=== PATIENT | female | born 1930 | race Caucasian/White ===

== ENCOUNTER 2016-11-14 14:00 | Inpatient (IN) | payer MEDICARE, BC ==
[~2016-11-14] VITALS: Ht 170.2 cm; Wt 64.3 kg
--- NOTE | ~2016-11-14 | OR ---
PATIENT'S NAME: HAZEL GTZ [facility] AGE: 86 Y [address] ROOM: [address] [address] LOCATION: GPCU ADMIT DATE: 11/15/2016 OR/Procedure Report DISCHARGE DATE: FAMILY PHYSICIAN: Del Camejo MD ATTENDING PHYSICIAN: JEFF VELASCO SURGEON: Jeff Velasco MD [employer] ARCHITECT: DATE OF PROCEDURE: 11/15/2016 PREOPERATIVE DIAGNOSIS: High-grade right internal carotid artery stenosis. POSTOPERATIVE DIAGNOSIS: High-grade right internal carotid artery stenosis. PROCEDURES: Right carotid endarterectomy with bovine pericardial patch. PIANO MACHINE OPERATOR: Yana Saldaña, nurse practitioner, who provided retraction help as well as closure of the wound as well as Annmarie Justyn. ANESTHESIA: General. ESTIMATED FLUID LOSS: 200 mL. OPERATIVE FINDINGS: High-grade, nearly occlusive lesion in the right ICA, neurologically intact at the end of the case. DESCRIPTION OF PROCEDURE: The patient was brought to the operating room, placed supine on the operating table, prepped and draped in a sterile manner. Preoperative time-out was performed. The patient received preoperative antibiotics. We made a standard incision along the anterior border of the right sternocleidomastoid muscle, transected the platysma, dissected out the internal jugular, identified the facial vein, which was ligated and transected. We then dissected out the common, external, and internal carotid arteries. We gave 5000 units of heparin. We clamped proximally and distally on all major arteries. We performed back pressure, which showed that she did not have adequate pressure to avoid a shunt, so we placed a 5 x 3 Sundt shunt. Flow was confirmed using Doppler. We then removed the plaque in its entirety. We then did a standard bovine pericardial patch using two running 6-0 Campus sutures. We clamped to remove the shunt. We allowed backbleeding from all 3 vessels. We opened up at the external and common, we waited 10 heartbeats, opened the clamp on the internal. Flow was confirmed in all 3 vessels with Doppler. Protamine was used to reverse the heparin. Deep layers were closed with 2-0 and 3-0 Vicryl. The patient's INR was 2.0 on the starting of the case. The patient was on Coumadin. We proceeded due to the fact that the patient had a critical carotid. We placed a 10-flat MALI drain along the bed of the incision to drain any excess oozing of blood, when up the patient did PATIENT'S NAME: HAZEL GTZ [facility] AGE: 86 Y [address] ROOM: [place] [address] LOCATION: GPCU ADMIT DATE: 11/15/2016 OR/Procedure Report DISCHARGE DATE: FAMILY PHYSICIAN: Del Camejo MD ATTENDING PHYSICIAN: JEFF VELASCO appear significantly enjoying when we were done. Skin was closed with running 4-0 Monocryl. The patient tolerated the procedure well and transferred to the recovery room and then up to the floor. JEFF VELASCO MD FKM/modl /[id number] d: 11/15/16 1832 t: 11/20/16 1150, OPERATIVE SUMMARY
--- NOTE | ~2016-11-14 | PUL ---
PATIENT'S NAME: HAZEL GTZ [facility] AGE: 86 Y [address] ROOM: [place] [address] LOCATION: GPCU ADMIT DATE: 11/15/2016 Pulmonary DISCHARGE DATE: 11/17/2016 FAMILY PHYSICIAN: Del Camejo MD ATTENDING PHYSICIAN: Jeff Velasco NAME OF PROCEDURE: Overnight Pulse Oximetry DATE OF PROCEDURE: November 17, 2015 REASON FOR EXAM: Nocturnal hypoxemia RESULTS: Overnight oximetry on room air. The total recording time was 9 hours, 26 minutes, and 28 seconds with a total valid sampling time of 9 hours, 6 minutes, and 20 seconds. The highest pulse was 123, lowest pulse 80, with a mean pulse of 99. Highest SpO2 was 95%, lowest SpO2 was 72%, with a mean SpO2 of 88.3%. The three longest continuous times with saturation less than 88% was 13 minutes and 52 seconds, 11 minutes, and 10 minutes and 24 seconds. The desaturation event index was elevated at 39.4. PHYSICIAN INTERPRETATION: The patient has evidence of significant nocturnal hypoxia and will qualify for oxygen supplementation as per Medicare criteria. We will recommend a sleep study at this point. MD AYAKA PAIGE/isacc /[id number] dtt: 11/21/16 1429 , dtd:
--- NOTE | ~2016-11-14 | CON ---
PATIENT'S NAME: HAZEL GTZ [facility] AGE: 86 Y [address] 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 The patient at this time has no complaints. Her voice is sore, but other than that her pain is controlled. She has no shortness of breath. She has no fever or chills. She has no chest pain. She has no abdominal pain, no nausea, no diarrhea, no abdominal or urinary changes. REVIEW OF SYSTEMS: Negative as per HPI. PAST MEDICAL HISTORY: AFib, basal cell carcinoma, peripheral vascular disease, carotid artery stenosis critical on the right side, osteoarthritis, osteoporosis, hypertension, fatty liver. FAMILY HISTORY: Her father had an OR at the age of 70. Her maternal grandmother has diabetes type 2. Her mother had cervical cancer. SOCIAL HISTORY: She is never a smoker. She rarely consumes alcohol. ALLERGIES: NO KNOWN ALLERGIES AT THIS TIME. MEDICATIONS: Include Norvasc 5 mg p.o. every day, furosemide 20 mg every day, Toprol 50 mg twice a day, potassium 10 mEq everyday, propafenone 150 mg times a day, and Coumadin 3 mg everyday PHYSICAL EXAMINATION: VITAL SIGNS: The patient is afebrile, pulse is in the 90s, respiratory rate [facility]GE[facility] 86 Y [address] ROOM: [place] [address] LOCATION: GPCU ADMIT DATE: 11/15/2016 Consultation DISCHARGE DATE: FAMILY PHYSICIAN: Del Camejo MD ATTENDING PHYSICIAN: CHARMAINE BENEDICT 14, blood pressure 140/90, and saturating 96% on about 3 L of oxygen. GENERAL: She is postop at this time. She is normal. She is alert, awake, and oriented. She is no acute distress. LUNGS: Diminished, but clear. No crackles. No wheezing. HEART: Heart sounds regular rate and rhythm. No rubs or no murmurs present. ABDOMEN: Soft and nontender. No guarding or rigidity. Noted. No pedal edema. SKIN: Intact. She has a drain from the carotid endarterectomy site and is draining very well. NEUROLOGIC: She is grossly intact. LABORATORY DATA: From today's labs, there does not appear to be any significant abnormalities. Her INR is 2.05. ASSESSMENT AND PLAN: 1. Right artery critical stenosis status post endarterectomy. Management per primary team. 2. Hypertension. We will continue Norvasc and Toprol. 3. For her atrial fibrillation, continue propafenone and Toprol. We will defer resuming Coumadin to primary team. MD GRUPO HERNADEZ/arsalan /[id number] d: 11/16/16 0042 t: 11/16/16 1331, CONSULTATION REPORT
--- NOTE | ~2016-11-14 | DS ---
PATIENT'S NAME: HAZEL GTZ [facility] AGE: 86 Y [address] ROOM: [place] [address] LOCATION: GPCU ADMIT DATE: 11/15/2016 Discharge Summary DISCHARGE DATE: 11/17/2016 FAMILY PHYSICIAN: Del Camejo MD ATTENDING PHYSICIAN: Jeff Velasco DISCHARGE DIAGNOSES: 1. Right internal carotid stenosis. 2. Severe chronic obstructive pulmonary disease. 3. Acute on chronic hypoxic respiratory failure. 4. Atrial fibrillation. 5. Essential hypertension. 6. Chronic kidney disease stage 3. PROCEDURES: 1. Right carotid endarterectomy by Dr. Velasco. 2. Trend oximetry by respiratory therapy. REASON FOR ADMISSION: See diagnosis list. HOSPITAL COURSE: Postoperatively, she did well. She had maybe a slightly slower recovery than somebody younger. We did a trend oximetry last night that showed that she was less than 90% about 65% of the time and less than 89 about half the time. She did not get below 70% and was below 80% only 1% of the time. LABORATORY: Her white count, hemoglobin, and platelets have been consistently normal. Her BUN was 22 with creatinine of 1.4, slightly up from admission at 1.2. Electrolytes otherwise normal. Her GFR was in the 34-41 range. Chest x- ray on 11/17 showed stable cardiomegaly. She had normally compensated pulmonary vasculature and hypoventilatory density in the left base. No evidence for pneumonia. DISCHARGE MEDICATIONS: She will be discharged on meds per nursing med recon. DISCHARGE DIET: Ad kishore. DISCHARGE ACTIVITY: Ad kishore. I pushed fairly sincerely and vigorously for home oxygen, but she really did not want it and I think ethically I could not have pushed any harder and done the right thing. Her daughter was sort of pushing for just having home O2 available if she needed and she still refused. PATIENT'S NAME: HAZEL GTZ [facility] AGE: 86 Y [address] ROOM: [place] [address] LOCATION: GPCU ADMIT DATE: 11/15/2016 Discharge Summary DISCHARGE DATE: 11/17/2016 FAMILY PHYSICIAN: eDl Camejo MD ATTENDING PHYSICIAN: Jeff Vleasco FOLLOWUP: Followup will be with Dr. Yana Saldaña in [address] Camejo in 3 days. Note that discharge time was less than 30 minutes. MD LEIA JAMISON/modl /[id number] d: 11/18/16 012 t: 11/20/16 09, DISCHARGE SUMMARY
[~2016-11-14 14:00] MED LIST: COUMADIN ** IA3 MG PO; LASIX20 MG PO; LOPRESSOR50 MG PO; NORVASC5 MG PO; POTASSIUM CHLO10 MEQ PO; RYTHMOL150 MG PO
[2016-11-15 08:26] LABS: BASOPHIL % 0.5 %; EOSINOPHIL # 0.2 K/uL (0.0-0.5); EOSINOPHIL % 4.5 %; HEMATOCRIT 39.1 % (30.0-46.0); HEMOGLOBIN 12.7 g/dL (10.0-15.0); IMMATURE GRANULOCYTE % 0.2 %; LYMPHOCYTE % 24.8 %; MCH 30.2 pg (27.0-34.0); MCHC 32.5 gm/dL (32.0-36.5); MCV 93.1 fl (83.0-98.0); MONOCYTE # 0.5 K/uL (0.0-1.0); MONOCYTE % 11.2 %; MPV 10.8 fl (9.4-12.4); NEUTROPHIL # (ANC) 2.4 K/uL (1.8-7.8); NEUTROPHIL % 58.8 %; NRBC % 0 /100WBC (0-0.00); PLATELET COUNT 153 K/uL (150-450); RDW-CV 17.4 % (11.9-14.6)
[2016-11-15 08:33] LABS: INR - (THERAPEUTIC) 2.05 (0.92-1.07); PROTIME 21.7 SECONDS (9.8-11.4); PTT 40 SECONDS (25-32)
--- NOTE | 2016-11-15 16:39 | NUR ---
Significant Event: VSS AND 4L/NC. AFEBRILE. RT)NECK CIRCUMFERENCE MEASURES 38 CMS, DRESSING C/D/I. MALI DRAIN WITH 10 MLS BLOODY DRAINAGE OUT. DROWSY THIS AFTERNOON, AWAKES EASILY TO VERBAL STIMULI. DENIES PAIN P 1 TAB NORCO GIVEN IN THE PACU. INC VOID X1, REPOSITIONED Q2H. NEUROS ALL INTACT. Follow up: CONTINUE PLAN OF CARE; ? HOME TMRW.
[2016-11-16 04:30] LABS: ANION GAP 10.6 (10.0-19.0); CREATININE 1.2 mg/dL (0.5-1.1); POTASSIUM 4.6 mMol/L (3.7-5.1)
[2016-11-16 04:44] LABS: BASOPHIL % 0.2 %; HEMATOCRIT 33.9 % (30.0-46.0); HEMOGLOBIN 10.9 g/dL (10.0-15.0); IMMATURE GRANULOCYTE % 0.4 %; LYMPHOCYTE # 0.7 K/uL (0.8-4.0); LYMPHOCYTE % 13.5 %; MCH 29.8 pg (27.0-34.0); MCHC 32.2 gm/dL (32.0-36.5); MCV 92.6 fl (83.0-98.0); MONOCYTE # 0.4 K/uL (0.0-1.0); MONOCYTE % 7.9 %; MPV 10.8 fl (9.4-12.4); NEUTROPHIL # (ANC) 4.2 K/uL (1.8-7.8); NRBC % 0 /100WBC (0-0.00); PLATELET COUNT 158 K/uL (150-450); RBC 3.66 M/uL (3.00-5.00); RDW-CV 17.1 % (11.9-14.6); WBC 5.3 K/uL (4.0-11.0)
[2016-11-16 04:59] LABS: INR - (THERAPEUTIC) 1.53 (0.92-1.07); PROTIME 16.1 SECONDS (9.8-11.4)
--- NOTE | 2016-11-16 05:22 | NUR ---
Significant Event: A/0X3. RESTED IN BED ALL OF SHIFT. TURNED Q 2 HRS SIDE TO SIDE. AFEBRILE. NEURO CHECKS WNL. NECK MEASURING 38 CM. FOLLOWS COMMAND APPROPRIATELY. VSS ON 2L. WORKING ON TRYING TO WEAN TO RA. GAVE NORCO X1. LAST DOSE WAS AT 2128. PATIENT WAS ABLE TO FIND RELIEF AND REST COMFORTABLY THROUGH OUT THE NIGHT WITH NO C/O SINCE. IV TO L) FA SL. IV TO R) FA SL. ART LINE TO R) RADIAL. WILL D/C THIS SHIFT. VOIDED FINE. NO BM THIS SHIFT. DRESSING D/I. SMALL AMOUNT OF SHADOW DRAINAGE MARKED. MALI HAD 20 MLS OUT. SPEECH EVAL TO DO BEDSIDE SWALLOW STUDY TODAY. Follow up: CONTINUE WITH PLAN OF CARE
--- NOTE | 2016-11-16 12:30 | NUR ---
Introduced self and role of care management to patient and a daughter. Patient [place] in the [facility]. She has a walker and cane at home but doesn't use them very often. Rk says her parents are active and independent for their age. They hope she can go home today. will assist as needed at home. Will follow.
--- NOTE | 2016-11-16 19:37 | NUR ---
Significant Event:UNABLE TO WEAN OFF O2. CXR SHOWED ATELECTASIS, STARTED IS. AMBULATED IN HALLWAY. 1 ASSIST. DC'D MALI DRAIN, INCISION INTACT, NEUROS WNL. Follow up: TREND OX TONIGHT
[2016-11-17 05:18] LABS: BASOPHIL % 0.5 %; EOSINOPHIL # 0.2 K/uL (0.0-0.5); EOSINOPHIL % 3.2 %; HEMATOCRIT 34.5 % (30.0-46.0); HEMOGLOBIN 11.2 g/dL (10.0-15.0); IMMATURE GRANULOCYTE % 0.2 %; LYMPHOCYTE # 1.3 K/uL (0.8-4.0); LYMPHOCYTE % 20.8 %; MCH 30.3 pg (27.0-34.0); MCHC 32.5 gm/dL (32.0-36.5); MCV 93.2 fl (83.0-98.0); MONOCYTE # 0.7 K/uL (0.0-1.0); MONOCYTE % 11.4 %; MPV 10.5 fl (9.4-12.4); NEUTROPHIL % 63.9 %; NRBC % 0 /100WBC (0-0.00); PLATELET COUNT 169 K/uL (150-450); RDW-CV 17.2 % (11.9-14.6); WBC 6.2 K/uL (4.0-11.0)
[2016-11-17 05:41] LABS: INR - (THERAPEUTIC) 1.55 (0.92-1.07); PROTIME 16.3 SECONDS (9.8-11.4)
[2016-11-17 05:44] LABS: CALCIUM 8.5 mg/dL (8.5-10.5); CREATININE 1.4 mg/dL (0.5-1.1)
--- NOTE | 2016-11-17 07:56 | NUR ---
A&Ox3. Trend Ox this shift. Lungs clear/dim. HR 80s. SBP 110-150s. CXR this AM for hypoxia. IVs to L) and R) forearms saline locked. No complaints of pain this shift. Up 1 assist to bathroom.
[2016-11-17] MEDS ORDERED: NORCO 5-325 TA1 EACH PO (13:26)
--- NOTE | 2016-11-17 14:42 | NUR ---
ORDERS RECEIVED TO DISCHARGE PATIENT HOME. TELE MONITOR, AND IV DC'D. DISCHARGE INSTRUCTIONS EXPLAINNED AND GIVEN TO PATIENT, AND DAUGHTER.VERBALIZED UNDERSTANDING. TAKEN DOWNSTAIRS PER WHEELCHAIR BY TECH ON THE FLOOR.
== END 2016-11-17 14:20 | disposition disaster alternative care site (69) | DRG 37 ==
LOC: GPCU 11-15 06:31
PROVIDERS: Nurse Practitioner Family; ADMIT Surgery Vascular Surgery
PROC: 03CK0ZZ Extirpation of Matter from Right Internal Carotid Artery, Open Approach (ICD-10-PCS; principal; 2016-11-15)
PROC: 03UK0KZ Supplement Right Internal Carotid Artery with Nonautologous Tissue Substitute, Open Approach (ICD-10-PCS; 2016-11-15)
DX: I65.21 Occlusion and stenosis of right carotid artery (principal); J96.21 Acute and chronic respiratory failure with hypoxia; K76.0 Fatty (change of) liver, not elsewhere classified; I48.91 Unspecified atrial fibrillation; I73.9 Peripheral vascular disease, unspecified; Z85.828 Personal history of other malignant neoplasm of skin; E78.5 Hyperlipidemia, unspecified; J44.9 Chronic obstructive pulmonary disease, unspecified; I12.9 Hypertensive chronic kidney disease with stage 1 through stage 4 chronic kidney disease, or unspecified chronic kidney disease; N18.3 Chronic kidney disease, stage 3 (moderate); I25.10 Atherosclerotic heart disease of native coronary artery without angina pectoris; M81.0 Age-related osteoporosis without current pathological fracture
CPT/HCPCS: A9270; J0690; J1100; J1644; J2001; J2405; J2720; J3480; J7030; J7120